=== PATIENT | female | born 1985 | race Caucasian/White ===

== ENCOUNTER 2018-11-10 17:01 | Observation (INO) ==
[2018-11-10] MEDS ORDERED: HYDROmorphone INJ 0.5 MG/0.5 ML SYR IV STA ×2 (17:23→18:53)
[2018-11-10] MEDS ORDERED: SODIUM CHLORIDE 0.9% 1000ML 1,000 ML IV ONE ×2 (17:23→19:14)
[2018-11-10] MEDS ORDERED: ONDANSETRON INJ 2 MG/ML 2 ML VIAL IV STA ×2 (17:23→23:00)
[2018-11-10 17:29] LABS: Appearance Urine Clear (Clear); Bilirubin Urine Negative (Negative); Blood Urine Negative (Negative); Color Urine Yellow; Glucose Urine UA Negative (Negative); Ketones Urine Negative (Negative); Leukocyte Esterase Urine Negative (Negative); Nitrite Urine Negative (Negative); Protein Urine Negative (Negative); Urobilinogen Urine Negative (Negative); pH Urine 5.5 (4.5-7.5)
[2018-11-10 17:54] LABS: Basophils # (auto) 0.03 K/uL (0-0.2); Basophils % (auto) 0.4 %; Eosinophils # (auto) 0.19 K/uL (0-0.5); Eosinophils % (auto) 2.4 %; Hematocrit (blood only) 36.3 % (37-47); Hemoglobin 12.1 g/dL (12.0-16.0); Immature Granulocytes # (auto) 0.01 K/uL (0.00-0.02); Immature Granulocytes % (auto) 0.1 %; Lymphocytes # (auto) 1.69 K/uL (1.2-3.4); Lymphocytes % (auto) 21.6 %; Mean Corpuscular Hgb Conc 33.3 g/dL (32-36); Mean Corpuscular Volume 88.3 fL (80-100); Mean Platelet Volume 9.4 fL (7.4-10.4); Monocytes # (auto) 0.49 K/uL (0.11-0.59); Monocytes % (auto) 6.3 %; Neutrophils # (auto) 5.42 K/uL (1.4-6.5); Neutrophils % (auto) 69.2 %; Platelet Count 239 K/uL (130-400); RDW Coefficient of Variation 12.6 % (11.5-14.5); RDW Standard Deviation 40.5 fL (36.4-46.3); Red Blood Count 4.11 M/uL (4.2-5.4); White Blood Count 7.83 K/uL (4.8-10.8)
--- NOTE | 2018-11-10 18:07 | Emergency Department Note ---
History of Present Illness General Chief complaint: Kidney Stone Stated complaint: KIDNEY STONE Time Seen by Provider: 11/10/18 17:43 History of Present Illness Maximum Pain Intensity: 9 This patient is a 33-year-old female who presents to the emergency department with complaints of severe right flank pain that has been ongoing for the last 2 weeks. She has a history of ureteral stones. She is currently following with [facility] urology. She was supposed to undergo testing this morning with [facility] urology, but was unable to go due to pain. She also reports intermittent fevers as high as 102 F over the last several days. She has been taking oxycodone with no relief. She does report hematuria and nausea. The history is somewhat limited secondary to the patient's pain level Home Medications Home Medications Medication Instructions Recorded Confirmed Type infliximab [Remicade] 100 mg IV Q8WK 11/10/18 11/10/18 History ondansetron 8 mg PO TID PRN 11/10/18 11/10/18 History oxycodone 5 mg PO Q4H PRN 11/10/18 11/10/18 History Allergies Allergy/AdvReac Type Severity Reaction Status Date / Time amoxicillin Allergy Intermediate RASH Verified 02/14/18 18:52 dicyclomine Allergy Intermediate RASH Verified 02/14/18 18:52 diphenhydramine Allergy Intermediate IV-RASH, Verified 02/14/18 18:52 ORAL "OK" metoclopramide Allergy Intermediate "JUMPED Verified 02/14/18 18:52 OFF THE BED"-TOLD NOT TO TAKE AGAIN morphine Allergy Intermediate RASH Verified 02/14/18 18:52 CHLORHEXADINE Allergy Severe "CAN'T USE Uncoded 02/14/18 18:52 ARM IF USED TO CLEAN PRIOR TO IV". Past Med/Surg History Medical History Crohn's disease Kidney stone Social History Preferred Language: Malay Feels Safe at Home: Yes Smoking Status: Never smoker Review of Systems A total of 10 systems reviewed and were otherwise negative Physical Exam Vital Signs Vital Signs - 24 hr 11/10/18 17:12 11/10/18 19:04 11/10/18 20:44 Temperature 37.0 C Temperature Source Oral Sepsis Recent Fever Within 48 Hours No Sepsis Action Taken by Nursing No Action Required Pulse Rate 94 H Pulse Rate [Apical] 100 H 80 Respiratory Rate 18 18 13 Respiratory Effort / Characteristics Non-Labored Spontaneous Respiratory Depth Normal Normal Respiratory Pattern Regular Blood Pressure 122/80 Blood Pressure [Right Arm] 121/76 107/79 Blood Pressure Mean 94 Blood Pressure Mean [Right Arm] 91 88 Blood Pressure Position Sitting Pulse Oximetry 100 98 95 Oxygen Delivery Method Room Air Room Air Room Air Constitutional WD/WN, vitals as above Eyes EOM intact bilaterally ENMT external ear and nose normal, oropharynx normal Neck trachea midline Respiratory normal respiratory effort, lungs clear to auscultation Cardiovascular RRR, no murmur, no edema Gastrointestinal (Abdomen) Diffuse tenderness palpation over the abdomen without any guarding or rebound tenderness. Right-sided CVA tenderness noted. Musculoskeletal no cyanosis or clubbing, extremities motor strength 5/5 Skin no rashes, warm and dry Neurologic Alert and oriented x3. No focal motor deficits. Psychiatric Acting appropriately Course Patient was seen and examined Vital signs including blood pressure were reviewed medications list was verified with patient Labs were obtained, and a saline lock was established The patient was ordered Dilaudid 0.5 mg IV and Zofran 4 mg IV. She was hydrated with 1 L of normal saline. Urology was consulted An ultrasound was performed Upon reevaluation, the patient was still complaining of pain. She was ordered Flomax 4 mg p.o. and Dilaudid 0.5 mg IV. We discussed her workup. She voiced understanding. Upon reevaluation, the patient was still complaining of pain. She was ordered Dilaudid 1mg At this point, we discussed her results. She voiced understanding. She was in agreement with the plan. The case was discussed with case management and subsequently the hospitalist service. They kindly agreed to evaluate the patient for possible inpatient management. Consultations Consultation #1: Dr. Tate-urology Consultation #2: Hospitalist service Administered Medications Discontinued Medications Hydromorphone HCl (Dilaudid) 0.5 mg IV NOW STA Stop: 11/10/18 17:24 Last Admin: 11/10/18 17:49 Dose: 0.5 mg Documented by: [id number] Hydromorphone HCl (Dilaudid) 0.5 mg IV NOW STA Stop: 11/10/18 18:54 Last Admin: 11/10/18 18:57 Dose: 0.5 mg Documented by: [id number] Hydromorphone HCl (Dilaudid) 1 mg IV NOW STA Stop: 11/10/18 20:36 Last Admin: 11/10/18 20:42 Dose: 1 mg Documented by: [id number] Sodium Chloride (Nss 1000ml) 1,000 mls @ 999 mls/hr IV .Q1H1M ONE Stop: 11/10/18 18:23 Last Infusion: 11/10/18 20:22 Dose: 0 mls/hr Documented by: [id number] Admin: 11/10/18 17:49 Dose: 999 mls/hr Documented by: [id number] Sodium Chloride (Nss 1000ml) 1,000 mls @ 999 mls/hr IV .Q1H1M ONE Stop: 11/10/18 20:14 Last Infusion: 11/10/18 21:23 Dose: 0 mls/hr Documented by: [id number] Admin: 11/10/18 20:22 Dose: 999 mls/hr Documented by: [id number] Ondansetron HCl (Zofran) 4 mg IV NOW STA Stop: 11/10/18 17:24 Last Admin: 11/10/18 17:49 Dose: 4 mg Documented by: [id number] Tamsulosin HCl (Flomax) 0.4 mg PO NOW ONE Stop: 11/10/18 19:15 Last Admin: 11/10/18 19:30 Dose: 0.4 mg Documented by: [id number] Medical Decision Making Medical Records Attestation: I reviewed the patient's medical records. Home Medications Current Medication List: was personally reviewed by ga Laboratory Data Attestation: I reviewed the patient's lab results. Result diagrams: 11/10/18 17:47 11/10/18 17:47 Lab Results 11/10/18 11/10/18 11/10/18 Range/Units 17:19 17:47 17:47 WBC 7.83 (4.8-10.8) K/uL RBC 4.11 L (4.2-5.4) M/uL Hgb 12.1 (12.0-16.0) g/dL Hct 36.3 L (37-47) % MCV 88.3 (80-100) fL MCH 29.4 (25-34) pg MCHC 33.3 (32-36) g/dL RDW Std Deviation 40.5 (36.4-46.3) fL RDW Coeff of Sp 12.6 (11.5-14.5) % Plt Count 239 (130-400) K/uL MPV 9.4 (7.4-10.4) fL Immature Gran % (Auto) 0.1 % Neut % (Auto) 69.2 % Lymph % (Auto) 21.6 % Jackson % (Auto) 6.3 % Eos % (Auto) 2.4 % Baso % (Auto) 0.4 % Immature Gran # (Auto) 0.01 (0.00-0.02) K/uL Neut # (Auto) 5.42 (1.4-6.5) K/uL Lymph # (Auto) 1.69 (1.2-3.4) K/uL Jackson # (Auto) 0.49 (0.11-0.59) K/uL Eos # (Auto) 0.19 (0-0.5) K/uL Baso # (Auto) 0.03 (0-0.2) K/uL Sodium 143 (136-145) mmol/L Potassium 3.9 (3.5-5.1) mmol/L Chloride 110 H (98-107) mmol/L Carbon Dioxide 28 (21-32) mmol/L Anion Gap 5.0 (3-11) BUN 4 L (7-18) mg/dl Creatinine 0.62 (0.6-1.2) mg/dl Est Cr Clr Drug Dosing 108.8 ml/min Est GFR ( Amer) 139.3 Est GFR (Non-Af Amer) 120.2 BUN/Creatinine Ratio 6.3 L (10-20) Glucose 63 L (70-99) mg/dl Calcium 9.5 (8.5-10.1) mg/dl Urine Color Yellow Urine Appearance Clear (Clear) Urine pH 5.5 (4.5-7.5) Ur Specific [place] 1.010 (1.000-1.030) Urine Protein Negative (Negative) Urine Glucose (UA) Negative (Negative) Urine Ketones Negative (Negative) Urine Blood Negative (Negative) Urine Nitrite Negative (Negative) Urine Bilirubin Negative (Negative) Urine Urobilinogen Negative (Negative) Ur Leukocyte Esterase Negative (Negative) Imaging Data Attestation: I personally reviewed and interpreted this imaging study as follows: Radiologist's Impression: Retroperitoneal ultrasound FINDINGS: The right kidney measures 8.6 x 3.9 x 6 cm and left kidney measures 10.2 x 6 x 5.7 cm. There is no left hydronephrosis. There is minimal right collecting system dilatation. Suspected bilateral renal calculi are noted. These measure up to 5 mm. Both ureteral jets were identified. IMPRESSION: 1. Mild right collecting system dilatation. 2. Bilateral nephrolithiasis. Electronically signed by: Gigi Walters M.D. 11/10/2018 6:49 PM Dictated: 11/10/181846 Transcribed: 11/10/181846 [facility] Narrative Differential diagnosis: Ureteral stone, pyelonephritis, sepsis, musculoskeletal pain, drug-seeking behavior, colitis flare, other infectious etiology, among others This patient is a 33-year-old female who presents to the emergency department with ongoing flank pain as noted above. On exam, she did appear comfortable. She was however afebrile. She did not have any focal tenderness in her abdomen. Her labs reveal no leukocytosis. Renal function is intact. Urinalysis did not appear infected. There was no blood. The case was discussed with urology. They recommended an ultrasound. This was performed. Mild fullness was noted of the right sided collecting duct. Unfortunately, I was unable to control the patient's pain. For this reason, hospitalist consultation was felt to be appropriate. They will evaluate the patient for further treatment. Impression & Plan Flank pain Discharge Plan Visit Data Chief Complaint: Kidney Stone Stated Complaint: KIDNEY STONE ED Provider: Nigel Kirkpatrick ED Midlevel Provider: Nikole Gregory Discharge Problem: Flank pain Patient Disposition: Admitted As Inpatient Condition: Fair Forms Stand Alone Forms: [facility] Prescriptions Prescriptions: No Action ondansetron 8 mg tablet,disintegrating 8 mg PO TID PRN (Reason: Nausea And Vomiting) RF: 0 Remicade 100 mg Recon Soln 100 mg IV Q8WK RF: 0 oxycodone 5 mg tablet 5 mg PO Q4H PRN (Reason: Pain) RF: 0 Referrals Referrals: Tesfaye Hameed DO [Primary Care Provider] -
[2018-11-10 18:12] LABS: BUN Creatinine Ratio 6.3 (10-20); Calcium 9.5 mg/dl (8.5-10.1); Creatinine Clr Calc Pharmacy 108.8 ml/min; Est GFR (African American) 139.3; Est GFR (Non-African American) 120.2; Potassium 3.9 mmol/L (3.5-5.1)
--- NOTE | 2018-11-10 18:50 | Ultrasound Report ---
US retro bladder ltd CLINICAL HISTORY: R flank pain hx stones COMPARISON STUDY: KUB February 14, 2018. CT of the abdomen and pelvis September 22, 2018. FINDINGS: The right kidney measures 8.6 x 3.9 x 6 cm and left kidney measures 10.2 x 6 x 5.7 cm. Ther e is no left hydronephrosis. There is minimal right collecting system dilatation. Suspected bilateral renal calculi are noted. These measure up to 5 mm. Both ureteral jets were identified. IMPRESSION: 1. Mild right collecting system dilatation. 2. Bilateral nephrolithiasis. Electronically signed by: Gigi Walters M.D. 11/10/2018 6:49 PM
[2018-11-10] MEDS ORDERED: TAMSULOSIN HCL 0.4 MG CAP PO ONE (19:14)
[2018-11-10] MEDS ORDERED: HYDROmorphone INJ 1 MG/ML SYRINGE IV STA (20:35)
--- NOTE | 2018-11-10 22:51 | CT Scan Report ---
CT OF THE ABDOMEN AND PELVIS WITHOUT CONTRAST CLINICAL HISTORY: Right flank pain. Fever. COMPARISON STUDY: CT of the abdomen and pelvis September 22, 2018. Renal ultrasound performed earlier today. TECHNIQUE: Axial images of the abdomen and pelvis were obtained without IV contrast. Images were revi ewed in the axial, sagittal, and coronal planes. Automated exposure control was utilized for the vicenta dy. A dose lowering technique was utilized adhering to the principles of ALARA. FINDINGS: Note is made of a 4 mm left renal calculus. Several right renal calculi measure up to 5 mm. There is no hydronephrosis or hydroureter. There is no perinephric infiltration. No ureteral calculi are present. Evaluation of the remainder of the abdomen and pelvis is suboptimal on this unenhanced exam. There is no biliary ductal dilatation status post cholecystectomy. Unenhanced images of the spl een, adrenal glands and pancreas are normal. There is no pancreatic ductal dilatation. There is no pe ripancreatic infiltration. There are postoperative findings consistent with a right hemicolectomy. Th ere is no evidence for a bowel obstruction. There is no lymphadenopathy or ascites. Laxity of the ant erior abdominal wall with suspected hernias are noted. This contains bowel loops without bowel obstru ction. This is unchanged. There is no ascites. No suspicious osseous lesions are noted. IMPRESSION: 1. Bilateral nephrolithiasis. No ureteral calculi or hydronephrosis. 2. Status post right hemicolectomy. No bowel obstruction. 3. Several bowel containing and fat-containing ventral hernias. Electronically signed by: Gigi Walters M.D. 11/10/2018 10:48 PM
[2018-11-11] MEDS ORDERED: HYDROmorphone INJ 0.5 MG/0.5 ML SYR IV STA (00:13)
[2018-11-11] MEDS ORDERED: MAGNESIUM HYDROXIDE SUSP 30 ML UDC PO PRN (01:19)
[2018-11-11] MEDS ORDERED: POLYETHYLENE (MIRALAX) 17 GM PACK PO PRN (01:19)
[2018-11-11] MEDS ORDERED: ALUMINUM/MAGNESIUM SUSP 30 ML UDC PO PRN (01:19)
[2018-11-11] MEDS ORDERED: ACETAMINOPHEN 325 MG TAB PO PRN (01:19)
--- NOTE | 2018-11-11 01:25 | History & Physical Report ---
Date of Service November 11, 2018 Assessment & Plan (1) Flank pain: 33-year-old female with history of Crohn's disease and kidney stones presents with right-sided flank pain. Workup in the ED was negative for a white count, UA was negative for infection, there was no signs of ureteral stones or pyelonephritis. The patient has been afebrile for us. Nonetheless, the patient was admitted secondary to intractable pain. There appears to be some right-sided dilation and bilateral nephrolithi asis. Considering the pain the patient was having and the image findings, the patient was decidedly admitted for pain control and further urologic workup. Right flank pain, renal colic Ultrasound shows right-sided dilation, bilateral nephrolithiasis CT did not show any renal colic in the ureters, but it did show some in the kidney, no signs of bowel obstruction Admitting the patient for intractable pain, further evaluation from urology Patient was treated in the ED with dosing of Dilaudid, will de-escalate to IV Tylenol, every 4 hour oxycodone Urology consult, keep the patient n.p.o., continue IV fluids Crohn's disease, history of small bowel resection CT was not significant for inflammatory lesions Patient receives Remicade DVT prophylaxis SCDs, ambulate CODE STATUS Full code FEN N.p.o. (2) Renal colic: (3) Crohn disease: (4) Psoriasis: (5) History of cholecystectomy: (6) History of resection of small bowel: History of Present Illness Primary Care Provider: Tesfaye Hameed DO 33-year-old female with history of Crohn's disease and kidney stones presents with right-sided flank pain. The pain is been present for the past 2 weeks. She states that she has been seen by [facility] in the urology and was supposed to undergo testing today, but the patient was unable to make her appointment due to excruciating pain. She also states that she has had urinary symptoms during this period of time including hematuria. She also states that she has had periodic fevers. She states that today she is been nauseous and that she has vomited on 2 occasions. She denies diarrhea. Allergies Allergy/AdvReac Type Severity Reaction Status Date / Time amoxicillin Allergy Intermediate RASH Verified 02/14/18 18:52 dicyclomine Allergy Intermediate RASH Verified 02/14/18 18:52 diphenhydramine Allergy Intermediate IV-RASH, Verified 02/14/18 18:52 ORAL "OK" ketorolac [From Toradol] Allergy Intermediate Rash Verified 11/11/18 22:32 metoclopramide Allergy Intermediate "JUMPED Verified 02/14/18 18:52 OFF THE BED"-TOLD NOT TO TAKE AGAIN morphine Allergy Intermediate RASH Verified 02/14/18 18:52 sulfamethoxazole Allergy Intermediate Rash Verified 11/11/18 22:32 [From Bactrim] trimethoprim [From Bactrim] Allergy Intermediate Rash Verified 11/11/18 22:32 CHLORHEXADINE Allergy Severe "CAN'T USE Uncoded 02/14/18 18:52 ARM IF USED TO CLEAN PRIOR TO IV". Home Medications Home Medications Medication Instructions Recorded Confirmed Type Remicade 100 mg IV Q8WK 11/10/18 11/10/18 History ondansetron 8 mg PO TID PRN 11/10/18 11/10/18 History acetaminophen [Mapap 650 mg PO Q4H PRN #30 tab 11/12/18 Rx (acetaminophen)] Past Med/Surg History Medical History Crohn's disease Kidney stone Social History Preferred Language: Albanian Communication Ability: Effective Beliefs That Will Affect Care: None Current Living Situation: Spouse and Family Other Information That Helps Us Care for You: No Feels Safe at Home: Yes Safety Concerns: Feels Safe At This Time Smoking Status: Never smoker Hx Alcohol Use: No Hx Substance Use: No Review of Systems Review of Systems: All systems reviewed & are unremarkable except as noted in HPI & below Physical Exam Vital Signs (Past 24 Hours): Last Vital Signs Temp 37.0 C 11/10/18 17:12 Pulse 81 11/11/18 00:52 Resp 18 11/11/18 00:52 BP 124/80 11/11/18 00:52 Pulse Ox 99 11/11/18 00:52 Constitutional: WD/WN, vitals as above Eyes: PERRL, conjunctivae normal, anicteric sclerae ENMT: external ear and nose normal, oropharynx normal Neck: trachea midline, no thyromegaly Respiratory: normal respiratory effort, lungs clear to auscultation Cardiovascular: RRR, no murmur, no edema Gastrointestinal (Abdomen): Inspection/Auscultation: normal bowel sounds, + visible herniation and + abdominal surgical scar; abdomen not distended Percussion/Palpation: + abdomen tender (epigastric, LLQ) and abdomen soft; no guarding and abdomen not rigid Musculoskeletal: no cyanosis or clubbing, extremities motor strength 5/5 right-sided CVA tenderness Psychiatric: A+Ox3, euthymic affect Results & Data Laboratory Results Laboratory Last Values WBC 7.83 K/uL (4.8-10.8) 11/10/18 17:47 RBC 4.11 M/uL (4.2-5.4) L 11/10/18 17:47 Hgb 12.1 g/dL (12.0-16.0) 11/10/18 17:47 Hct 36.3 % (37-47) L 11/10/18 17:47 MCV 88.3 fL (80-100) 11/10/18 17:47 MCH 29.4 pg (25-34) 11/10/18 17:47 MCHC 33.3 g/dL (32-36) 11/10/18 17:47 RDW Std Deviation 40.5 fL (36.4-46.3) 11/10/18 17:47 RDW Coeff of Sp 12.6 % (11.5-14.5) 11/10/18 17:47 Plt Count 239 K/uL (130-400) 11/10/18 17:47 MPV 9.4 fL (7.4-10.4) 11/10/18 17:47 Immature Gran % (Auto) 0.1 % 11/10/18 17:47 Neut % (Auto) 69.2 % 11/10/18 17:47 Lymph % (Auto) 21.6 % 11/10/18 17:47 Iron % (Auto) 6.3 % 11/10/18 17:47 Eos % (Auto) 2.4 % 11/10/18 17:47 Baso % (Auto) 0.4 % 11/10/18 17:47 Immature Gran # (Auto) 0.01 K/uL (0.00-0.02) 11/10/18 17:47 Neut # (Auto) 5.42 K/uL (1.4-6.5) 11/10/18 17:47 Lymph # (Auto) 1.69 K/uL (1.2-3.4) 11/10/18 17:47 Iron # (Auto) 0.49 K/uL (0.11-0.59) 11/10/18 17:47 Eos # (Auto) 0.19 K/uL (0-0.5) 11/10/18 17:47 Baso # (Auto) 0.03 K/uL (0-0.2) 11/10/18 17:47 Sodium 143 mmol/L (136-145) 11/10/18 17:47 Potassium 3.9 mmol/L (3.5-5.1) 11/10/18 17:47 Chloride 110 mmol/L (98-107) H 11/10/18 17:47 Carbon Dioxide 28 mmol/L (21-32) 11/10/18 17:47 Anion Gap 5.0 (3-11) 11/10/18 17:47 BUN 4 mg/dl (7-18) L 11/10/18 17:47 Creatinine 0.62 mg/dl (0.6-1.2) 11/10/18 17:47 Est Cr Clr Drug Dosing 108.8 ml/min 11/10/18 17:47 Est GFR ( Amer) 139.3 11/10/18 17:47 Est GFR (Non-Af Amer) 120.2 11/10/18 17:47 BUN/Creatinine Ratio 6.3 (10-20) L 11/10/18 17:47 Glucose 63 mg/dl (70-99) L 11/10/18 17:47 Calcium 9.5 mg/dl (8.5-10.1) 11/10/18 17:47 Urine Color Yellow 11/10/18 17:19 Urine Appearance Clear (Clear) 11/10/18 17:19 Urine pH 5.5 (4.5-7.5) 11/10/18 17:19 Ur Specific [place] 1.010 (1.000-1.030) 11/10/18 17:19 Urine Protein Negative (Negative) 11/10/18 17:19 Urine Glucose (UA) Negative (Negative) 11/10/18 17:19 Urine Ketones Negative (Negative) 11/10/18 17:19 Urine Blood Negative (Negative) 11/10/18 17:19 Urine Nitrite Negative (Negative) 11/10/18 17:19 Urine Bilirubin Negative (Negative) 11/10/18 17:19 Urine Urobilinogen Negative (Negative) 11/10/18 17:19 Ur Leukocyte Esterase Negative (Negative) 11/10/18 17:19 Code Status & VTE Plan Code Status Full code VTE Prophylaxis Plan VTE Prophylaxis will be ordered: Yes Supervising Physician Co-Signing Physician Notes Attending addendum: I have physically seen this patient, have supervised the medical residents activities, and agree with the H&P unless as otherwise noted. Assessment and Plan: Right-sided flank pain/right ureteral dilatation/bilateral nephrolithiasis-- Scheduled for procedure in the a.m. with urology. Acetaminophen 1 g IV every 8 hours as needed mild pain or temperature. Oxycodone 5 mg p.o. every 4 hours as needed moderate pain. Dilaudid 0.2 mg IV every 3 hours as needed severe pain. NSS + KCl 20 mEq at 100 mils per hour. Zofran 4 mg IV every 6 hours as needed. Crohn's disease/history of small bowel resection- Immunocompromised on Remicade. Has not had a colonoscopy in a few years. If symptoms are persistent and urologic workup is negative, will need to be referred back to her medical scientific liaison for possible colonoscopy. Remainder of orders and notations as noted. Resident Activity Tracking Resident Involvement: Resident Care Provided Care Provided: Adult [facility]
[2018-11-11] MEDS: SODIUM CHLORIDE 0.9% 1000ML 1,000 ML IV SCH ×3 (01:46→17:34)
[2018-11-11] MEDS: OXYCODONE HCL IR 5 MG TAB (IMMEDIATE RELEASE) PO PRN ×3 (04:25→14:12)
[2018-11-11] MEDS: ACETAMINOPHEN 1,000 MG/100 ML VIAL IV PRN ×2 (07:51→15:28)
[2018-11-11 08:16] LABS: Basophils # (auto) 0.01 K/uL (0-0.2); Basophils % (auto) 0.2 %; Eosinophils # (auto) 0.25 K/uL (0-0.5); Eosinophils % (auto) 5.1 %; Hematocrit (blood only) 30.8 % (37-47); Hemoglobin 10.3 g/dL (12.0-16.0); Immature Granulocytes # (auto) 0.01 K/uL (0.00-0.02); Immature Granulocytes % (auto) 0.2 %; Lymphocytes # (auto) 1.45 K/uL (1.2-3.4); Lymphocytes % (auto) 29.7 %; Mean Corpuscular Hgb Conc 33.4 g/dL (32-36); Mean Corpuscular Volume 87.5 fL (80-100); Mean Platelet Volume 9.4 fL (7.4-10.4); Monocytes # (auto) 0.39 K/uL (0.11-0.59); Neutrophils # (auto) 2.77 K/uL (1.4-6.5); Neutrophils % (auto) 56.8 %; Platelet Count 191 K/uL (130-400); RDW Coefficient of Variation 12.8 % (11.5-14.5); RDW Standard Deviation 40.9 fL (36.4-46.3); Red Blood Count 3.52 M/uL (4.2-5.4); White Blood Count 4.88 K/uL (4.8-10.8)
[2018-11-11 09:14] LABS: BUN Creatinine Ratio 6.5 (10-20); Creatinine Clr Calc Pharmacy 129.7 ml/min; Est GFR (African American) 147.6; Est GFR (Non-African American) 127.3; Potassium 3.5 mmol/L (3.5-5.1)
[2018-11-11 10:53] LABS: Pregnancy Test, Urine Negative (Negative)
--- NOTE | 2018-11-11 11:06 | Urology Consultation ---
Date of Consultation November 11, 2018 Assessment & Plan (1) Renal colic: (2) Flank pain: 33yo F with R mid abdominal/flank pain, fevers and intermittent hematuria. VS stable, afebrile. Labs and CT imaging reviewed with Dr Albright. UA negative. Will obtain UC&S for completeness. May benefit from NSAIDs - voltaren gel vs toradol. Will allow hospital team to decide. No clear sign of obstruction or infection that would explain her acute R abdominal/flank pain. Possibly could have recently passed small stone. Could have musculoskeletal vs GI component- very tender/guarding upon palpation of R middle abdomen and flank. Describes as sharp, inconsistent with typical renal colic. ?Crohn's flare. Diarrhea and nausea yesterday - felt to be from ciprofloxacin however could be multifactorial. We do not feel surgical intervention will improve her pain at this time - okay to provide diet from our perspective. Recommend pain control and possible GI consult. Will continue to monitor with primary team. History of Present Illness Reason for Consultation: Right flank pain, hx stones Requesting Physician: Dr Spivey Attending Physician: Arlin Spivey MD History of Present Illness 33yo F with hx of Crohn's Disease and nephrolithiasis presents to [facility] ED by our recommendation for further evaluation of ongoing R flank pain x2 weeks, fevers, gross hematuria intermittently. She is new to our practice end of August, currently undergoing outpt evalua tion for this complaint. Planned for IVP today, however she called our practice with intractable pain, therefore we recommended ED evaluation. Recent UC&S negative, treated with 5d ciprofloxacin for suspected pyelo. Pt finished yesterday, states "it tore my stomach up" - diarrhea, nausea/emesis per patient. Currently in remission from Crohn's per patient. CT imaging reveals stable renal stones, nonobstructing. No ureteral stones, no hydro. No CT evidence of abscess or pyelonephritis. Appears very uncomfortable on exam today. Unable to open her eyes, moaning at times. Lying in bed with lights off and curtain down. Reports still feeling nausea- no emesis. Denies dysuria, urgency/frequency. ROS somewhat limited due to pain and not being very forthcoming with information. Allergies Allergy/AdvReac Type Severity Reaction Status Date / Time amoxicillin Allergy Intermediate RASH Verified 02/14/18 18:52 dicyclomine Allergy Intermediate RASH Verified 02/14/18 18:52 diphenhydramine Allergy Intermediate IV-RASH, Verified 02/14/18 18:52 ORAL "OK" metoclopramide Allergy Intermediate "JUMPED Verified 02/14/18 18:52 OFF THE BED"-TOLD NOT TO TAKE AGAIN morphine Allergy Intermediate RASH Verified 02/14/18 18:52 CHLORHEXADINE Allergy Severe "CAN'T USE Uncoded 02/14/18 18:52 ARM IF USED TO CLEAN PRIOR TO IV". Home Medications Home Medications Medication Instructions Recorded Confirmed Type infliximab [Remicade] 100 mg IV Q8WK 11/10/18 11/10/18 History ondansetron 8 mg PO TID PRN 11/10/18 11/10/18 History oxycodone 5 mg PO Q4H PRN 11/10/18 11/10/18 History Patient History Medical History Crohn's disease Kidney stone Social History Communication Ability: Effective Beliefs That Will Affect Care: None Current Living Situation: Spouse and Family Other Information That Helps Us Care for You: No Feels Safe at Home: Yes Safety Concerns: Feels Safe At This Time Smoking Status: Never smoker Hx Alcohol Use: No Hx Substance Use: No Review of Systems Constitutional: no fever and no chills Eyes: no problem reported Ear, Nose, Mouth, Throat: no ear pain and no tinnitus Respiratory: no cough and no dyspnea Cardiovascular: no chest pain Gastrointestinal: no abdominal pain and no belching Genitourinary (Female): no dysuria, no urinary frequency and no pelvic pain Musculoskeletal: no back pain Integumentary: no acne Neurologic: no falls, no paralysis, no numbness and no paresthesia Psychiatric: no hopelessness Endocrine: + fatigue; no polydipsia Hematologic / Lymphatic: no easy bleeding Allergy / Immunological: no cough Physical Exam Vital Signs (Past 24 Hours): Last Vital Signs Temp 36.6 C 11/11/18 07:42 Pulse 77 11/11/18 07:42 Resp 16 11/11/18 07:42 BP 102/68 11/11/18 07:42 Pulse Ox 96 11/11/18 07:42 Constitutional: no acute distress Eyes: no nystagmus ENMT: Ears: no hearing impairment Neck: trachea midline Respiratory: no respiratory distress and does not use accessory muscles Cardiovascular: Vessels: no JVD Gastrointestinal (Abdomen): Inspection/Auscultation: abdomen not distended and no abdominal edema Percussion/Palpation: + abdomen tender (Right middle quadrant with palpation), + guarding (Right middle quadrant and flank upon palpation) and abdomen soft Musculoskeletal: Head/Neck/Chest: normocephalic and head atraumatic Skin: no rashes, warm and dry Neurologic: awake; not confused and not obtunded Psychiatric: Orientation: alert and oriented x 3 Genitourinary: no CVA tenderness (no classic R CVA pain) Results & Data Laboratory Results Laboratory Results - last 48 hr 11/10/18 11/10/18 11/10/18 17:19 17:47 17:47 WBC 7.83 RBC 4.11 L Hgb 12.1 Hct 36.3 L MCV 88.3 MCH 29.4 MCHC 33.3 RDW Std Deviation 40.5 RDW Coeff of Sp 12.6 Plt Count 239 MPV 9.4 Immature Gran % (Auto) 0.1 Neut % (Auto) 69.2 Lymph % (Auto) 21.6 [place] % (Auto) 6.3 Eos % (Auto) 2.4 Baso % (Auto) 0.4 Immature Gran # (Auto) 0.01 Neut # (Auto) 5.42 Lymph # (Auto) 1.69 [place] # (Auto) 0.49 Eos # (Auto) 0.19 Baso # (Auto) 0.03 Sodium 143 Potassium 3.9 Chloride 110 H Carbon Dioxide 28 Anion Gap 5.0 BUN 4 L Creatinine 0.62 Est Cr Clr Drug Dosing 108.8 Est GFR ( Amer) 139.3 Est GFR (Non-Af Amer) 120.2 BUN/Creatinine Ratio 6.3 L Glucose 63 L Calcium 9.5 Urine Color Yellow Urine Appearance Clear Urine pH 5.5 Ur Specific [place] 1.010 Urine Protein Negative Urine Glucose (UA) Negative Urine Ketones Negative Urine Blood Negative Urine Nitrite Negative Urine Bilirubin Negative Urine Urobilinogen Negative Ur Leukocyte Esterase Negative Urine Test 11/11/18 11/11/18 11/11/18 07:59 07:59 10:31 WBC 4.88 RBC 3.52 L Hgb 10.3 L Hct 30.8 L MCV 87.5 MCH 29.3 MCHC 33.4 RDW Std Deviation 40.9 RDW Coeff of Sp 12.8 Plt Count 191 MPV 9.4 Immature Gran % (Auto) 0.2 Neut % (Auto) 56.8 Lymph % (Auto) 29.7 [place] % (Auto) 8.0 Eos % (Auto) 5.1 Baso % (Auto) 0.2 Immature Gran # (Auto) 0.01 Neut # (Auto) 2.77 Lymph # (Auto) 1.45 [place] # (Auto) 0.39 Eos # (Auto) 0.25 Baso # (Auto) 0.01 Sodium 143 Potassium 3.5 Chloride 113 H Carbon Dioxide 26 Anion Gap 4.0 BUN 3 L Creatinine 0.52 L Est Cr Clr Drug Dosing 129.7 Est GFR ( Amer) 147.6 Est GFR (Non-Af Amer) 127.3 BUN/Creatinine Ratio 6.5 L Glucose 89 Calcium 8.0 L D Urine Color Urine Appearance Urine pH Ur Specific [place] Urine Protein Urine Glucose (UA) Urine Ketones Urine Blood Urine Nitrite Urine Bilirubin Urine Urobilinogen Ur Leukocyte Esterase Urine Test Negative
[2018-11-11] MEDS: HYDROmorphone INJ 0.5 MG/0.5 ML SYR IV PRN ×2 (11:46→17:27)
[2018-11-11] MEDS: ONDANSETRON INJ 2 MG/ML 2 ML VIAL IV PRN (14:14)
--- NOTE | 2018-11-11 15:28 | Hospitalist Progress Note ---
Date of Service November 11, 2018 Assessment & Plan (1) Flank pain: This patient is a 33yo female with a history of Crohn's disease status post small bowel resection, nephrolithiasis, who presents with R mid abdominal/flank pain, fevers and intermittent hematuria. CT scan without evidence of ureterolithiasis but does have bilateral nephrolithiasis Renal ultrasound read as mild fullness of the collecting system of the right kidney but no hydronephrosis Question if she has a non-radiopaque stone that is small? I do not suspect she is having any issues with her Crohn's disease as her hernias are reducible and she has no bowel abnormalities on CT scan. Her UA here is normal but she also just finished a course of Cipro as an outpatient. She was having fevers at home previously. Could this be residual pyelonephritis? -Discussed with urology-plan for IVP in the morning -Continue pain control with IV Dilaudid as needed -Continue antiemetics with Zofran and add Phenergan as needed -Continue IV fluids -Not currently on antibiotics (2) Renal colic: As above (3) History of resection of small bowel: Secondary to Crohn's disease (4) Crohn disease: Now in remission, remains on Remicade DVT prophylaxis-ambulation, SCDs Disposition-remain admitted to the hospital Subjective Pt still having severe pain in the right flank which radiates around to the right side of the abdomen. She is requiring IV Dilaudid. She reports she is allergic to Toradol which was added to her allergy list here. She is still having intermittent nausea and vomiting. Reports intermittent hematuria over the last 2 weeks. She had a fever at home last week as well as 3 weeks ago. I discussed case with urology nurse practitioner who plans on doing IVP tomorrow Review of Systems All systems reviewed & are unremarkable except as noted in HPI & below (Denies chest pain or shortness of breath, no other symptoms. No hematochezia or diarrhea or constipation) Physical Exam Vital Signs (Past 24 Hours): Last Vital Signs Temp 36.8 C 11/11/18 15:02 Pulse 77 11/11/18 15:02 Resp 20 11/11/18 15:02 BP 110/76 11/11/18 15:02 Pulse Ox 96 11/11/18 15:02 Constitutional: WD/WN, vitals as above Eyes: PERRL, conjunctivae normal, anicteric sclerae ENMT: external ear and nose normal, oropharynx normal Neck: trachea midline, no thyromegaly Respiratory: normal respiratory effort, lungs clear to auscultation Cardiovascular: RRR, no murmur, no edema Gastrointestinal (Abdomen): Inspection/Auscultation: normal bowel sounds; + abdomen abnormal to inspection (Large midline incisional scar) Percussion/Palpation: + abdomen tender (On the right side of abdomen with voluntary guarding, no rebound tenderness), abdomen soft and + hernia (Incisional hernia and umbilical hernia easily reducible) Positive right CVA tenderness Musculoskeletal: Extremities: extremities normal to inspection; no cyanosis and no clubbing Skin: no rashes, warm and dry Neurologic: moves all extremities and awake; no focal motor deficits Psychiatric: A+Ox3, euthymic affect Results & Data Laboratory Results 11/11/18 11/11/18 11/11/18 Range/Units 22:09 10:31 07:59 WBC (4.8-10.8) K/uL RBC (4.2-5.4) M/uL Hgb (12.0-16.0) g/dL Hct (37-47) % MCV (80-100) fL MCH (25-34) pg MCHC (32-36) g/dL RDW Std Deviation (36.4-46.3) fL RDW Coeff of Sp (11.5-14.5) % Plt Count (130-400) K/uL MPV (7.4-10.4) fL Immature Gran % (Auto) % Neut % (Auto) % Lymph % (Auto) % [place] % (Auto) % Eos % (Auto) % Baso % (Auto) % Immature Gran # (Auto) (0.00-0.02) K/uL Neut # (Auto) (1.4-6.5) K/uL Lymph # (Auto) (1.2-3.4) K/uL [place] # (Auto) (0.11-0.59) K/uL Eos # (Auto) (0-0.5) K/uL Baso # (Auto) (0-0.2) K/uL Sodium 143 (136-145) mmol/L Potassium 3.5 (3.5-5.1) mmol/L Chloride 113 H (98-107) mmol/L Carbon Dioxide 26 (21-32) mmol/L Anion Gap 4.0 (3-11) BUN 3 L (7-18) mg/dl Creatinine 0.52 L (0.6-1.2) mg/dl Est Cr Clr Drug Dosing 129.7 ml/min Est GFR ( Amer) 147.6 Est GFR (Non-Af Amer) 127.3 BUN/Creatinine Ratio 6.5 L (10-20) Glucose 89 (70-99) mg/dl Calcium 8.0 L D (8.5-10.1) mg/dl Urine Test Negative (Negative) POC Ur Test NEG (NEG) 11/11/18 Range/Units 07:59 WBC 4.88 (4.8-10.8) K/uL RBC 3.52 L (4.2-5.4) M/uL Hgb 10.3 L (12.0-16.0) g/dL Hct 30.8 L (37-47) % MCV 87.5 (80-100) fL MCH 29.3 (25-34) pg MCHC 33.4 (32-36) g/dL RDW Std Deviation 40.9 (36.4-46.3) fL RDW Coeff of Sp 12.8 (11.5-14.5) % Plt Count 191 (130-400) K/uL MPV 9.4 (7.4-10.4) fL Immature Gran % (Auto) 0.2 % Neut % (Auto) 56.8 % Lymph % (Auto) 29.7 % [place] % (Auto) 8.0 % Eos % (Auto) 5.1 % Baso % (Auto) 0.2 % Immature Gran # (Auto) 0.01 (0.00-0.02) K/uL Neut # (Auto) 2.77 (1.4-6.5) K/uL Lymph # (Auto) 1.45 (1.2-3.4) K/uL [place] # (Auto) 0.39 (0.11-0.59) K/uL Eos # (Auto) 0.25 (0-0.5) K/uL Baso # (Auto) 0.01 (0-0.2) K/uL Sodium (136-145) mmol/L Potassium (3.5-5.1) mmol/L Chloride (98-107) mmol/L Carbon Dioxide (21-32) mmol/L Anion Gap (3-11) BUN (7-18) mg/dl Creatinine (0.6-1.2) mg/dl Est Cr Clr Drug Dosing ml/min Est GFR ( Amer) Est GFR (Non-Af Amer) BUN/Creatinine Ratio (10-20) Glucose (70-99) mg/dl Calcium (8.5-10.1) mg/dl Urine Test (Negative) POC Ur Test (NEG)
[2018-11-11] MEDS ORDERED: KETOROLAC TROMETHAMINE 15 MG/ML VIAL IV PRN (18:59)
[2018-11-11] MEDS ORDERED: PROMETHAZINE HCL 12.5 MG in SODIUM CHLORIDE 0.9% 50 ML IV PRN (19:22)
[2018-11-11] MEDS: HYDROmorphone INJ 1 MG/ML SYRINGE IV PRN (19:36)
[2018-11-12] MEDS: OXYCODONE HCL IR 5 MG TAB (IMMEDIATE RELEASE) PO PRN ×3 (02:10→18:08)
[2018-11-12] MEDS: SODIUM CHLORIDE 0.9% 1000ML 1,000 ML IV SCH ×2 (02:24→11:35)
[2018-11-12] MEDS: HYDROmorphone INJ 1 MG/ML SYRINGE IV PRN ×3 (02:59→13:00)
--- NOTE | 2018-11-12 08:43 | Urology Progress Note ---
Date of Service November 12, 2018 Assessment & Plan (1) Renal colic: (2) Flank pain: 33yo F with ongoing R abd/flank pain. Not much improved from yesterday with IV/PO medications, unfortunately allergic to NSAIDs. Still with nausea/emesis. No labs available to review today. Awaiting UC&S results. IVP today to r/o small ureteral stone, collecting defect vs ureteral stricture. NPO for imaging study. Will continue to monitor closely and will direct careplan based upon IVP results. Discussed with Dr. Borges. Subjective Review of Systems All systems reviewed & are unremarkable except as noted in HPI & below Drowsy upon evaluation today. Still reporting right flank pain, right middle abdominal pain. Modestly controlled with IV and PO medications. Emesis yesterday, states she can't keep anything down. Denies LUTS, denies hematuria. States there was 'pieces" in her clean catch for culture yesterday. Did not feel they were stones, just "tissue". Unable to visualize. Physical Exam Vital Signs (Past 24 Hours): Last Vital Signs Temp 36.7 C 11/12/18 07:50 Pulse 79 11/12/18 07:50 Resp 19 11/12/18 07:50 BP 120/80 11/12/18 07:50 Pulse Ox 97 11/12/18 07:50 Physical Exam: Drowsy but oriented RRR R abdomen and flank tender upon deep palpation No bloating, no rebound tenderness Results & Data Laboratory Results Laboratory Results - last 48 hr 11/10/18 11/10/18 11/10/18 17:19 17:47 17:47 WBC 7.83 RBC 4.11 L Hgb 12.1 Hct 36.3 L MCV 88.3 MCH 29.4 MCHC 33.3 RDW Std Deviation 40.5 RDW Coeff of Sp 12.6 Plt Count 239 MPV 9.4 Immature Gran % (Auto) 0.1 Neut % (Auto) 69.2 Lymph % (Auto) 21.6 [place] % (Auto) 6.3 Eos % (Auto) 2.4 Baso % (Auto) 0.4 Immature Gran # (Auto) 0.01 Neut # (Auto) 5.42 Lymph # (Auto) 1.69 [place] # (Auto) 0.49 Eos # (Auto) 0.19 Baso # (Auto) 0.03 Sodium 143 Potassium 3.9 Chloride 110 H Carbon Dioxide 28 Anion Gap 5.0 BUN 4 L Creatinine 0.62 Est Cr Clr Drug Dosing 108.8 Est GFR ( Amer) 139.3 Est GFR (Non-Af Amer) 120.2 BUN/Creatinine Ratio 6.3 L Glucose 63 L Calcium 9.5 Urine Color Yellow Urine Appearance Clear Urine pH 5.5 Ur Specific [place] 1.010 Urine Protein Negative Urine Glucose (UA) Negative Urine Ketones Negative Urine Blood Negative Urine Nitrite Negative Urine Bilirubin Negative Urine Urobilinogen Negative Ur Leukocyte Esterase Negative Urine Test POC Ur Test 11/11/18 11/11/18 11/11/18 07:59 07:59 10:31 WBC 4.88 RBC 3.52 L Hgb 10.3 L Hct 30.8 L MCV 87.5 MCH 29.3 MCHC 33.4 RDW Std Deviation 40.9 RDW Coeff of Sp 12.8 Plt Count 191 MPV 9.4 Immature Gran % (Auto) 0.2 Neut % (Auto) 56.8 Lymph % (Auto) 29.7 [place] % (Auto) 8.0 Eos % (Auto) 5.1 Baso % (Auto) 0.2 Immature Gran # (Auto) 0.01 Neut # (Auto) 2.77 Lymph # (Auto) 1.45 [place] # (Auto) 0.39 Eos # (Auto) 0.25 Baso # (Auto) 0.01 Sodium 143 Potassium 3.5 Chloride 113 H Carbon Dioxide 26 Anion Gap 4.0 BUN 3 L Creatinine 0.52 L Est Cr Clr Drug Dosing 129.7 Est GFR ( Amer) 147.6 Est GFR (Non-Af Amer) 127.3 BUN/Creatinine Ratio 6.5 L Glucose 89 Calcium 8.0 L D Urine Color Urine Appearance Urine pH Ur Specific [place] Urine Protein Urine Glucose (UA) Urine Ketones Urine Blood Urine Nitrite Urine Bilirubin Urine Urobilinogen Ur Leukocyte Esterase Urine Test Negative POC Ur Test 11/11/18 22:09 WBC RBC Hgb Hct MCV MCH MCHC RDW Std Deviation RDW Coeff of Sp Plt Count MPV Immature Gran % (Auto) Neut % (Auto) Lymph % (Auto) [place] % (Auto) Eos % (Auto) Baso % (Auto) Immature Gran # (Auto) Neut # (Auto) Lymph # (Auto) [place] # (Auto) Eos # (Auto) Baso # (Auto) Sodium Potassium Chloride Carbon Dioxide Anion Gap BUN Creatinine Est Cr Clr Drug Dosing Est GFR ( Amer) Est GFR (Non-Af Amer) BUN/Creatinine Ratio Glucose Calcium Urine Color Urine Appearance Urine pH Ur Specific [place] Urine Protein Urine Glucose (UA) Urine Ketones Urine Blood Urine Nitrite Urine Bilirubin Urine Urobilinogen Ur Leukocyte Esterase Urine Test POC Ur Test NEG
[2018-11-12] MEDS ORDERED: OPTIRAY 300 IV PRN (09:06)
[2018-11-12] MEDS: ONDANSETRON INJ 2 MG/ML 2 ML VIAL IV PRN (10:15)
--- NOTE | 2018-11-12 10:24 | XRay Report ---
XR IVP wo/w tomograms CLINICAL HISTORY: R flank pain, hx stones COMPARISON STUDY: CT scan dated 11/10/2018 FINDINGS: The identity access management architect film reveals surgical clips in the right upper quadrant consistent with a prior c holecystectomy. There is a right mid abdominal suture line consistent with the patient's history of a prior hemicolectomy. There are faint renal calcifications suspicious for calculi. The patient was injected with 100 cc of Optiray 300. The 1 minute film reveals prompt bilateral nephr ograms. There is prompt bilateral excretion. Single nondilated ureters drain each kidney. No collecti ng system or ureteral filling defects are visualized. There is no evidence for calyceal displacement. There is a small post void residual. IMPRESSION: 1. Suspected bilateral nephrolithiasis 2. No evidence of obstruction 3. No collecting system or ureteral lesions identified 4. Small post void residual Electronically signed by: Gregory Noyola M.D. 11/12/2018 10:23 AM
[2018-11-12] MEDS: ACETAMINOPHEN 1,000 MG/100 ML VIAL IV PRN (16:23)
--- NOTE | 2018-11-12 17:45 | Consultation Report ---
DATE OF CONSULTATION: 11/12/2018 REASON FOR EVALUATION: Right flank pain and history of Crohn's disease. HISTORY OF PRESENT ILLNESS: The patient is a 33-year-old diagnosed with Crohn's disease at the age of 20. She has ileocolonic disease and in 2014 required a surgical resection of the ileocecal area and then 2 more operations ____ few months resulting in a right colectomy. She also had an incidental cholecystectomy at another time. She has been on Remicade since then, getting infusions every 8 weeks in [place]. She is followed there by Dr. Marcano. She also has had a history of kidney stones and is followed by the [facility] in [place] and because of her right flank pain over the last 2 weeks, she presented to the Emergency Room where she was subsequently admitted. She had a CAT scan and tomograms which showed some calcifications in the kidneys, but no active kidney disease or hydronephrosis. Her urinalysis was negative for blood despite the fact that she said that she saw blood in her urine. She has no inflammatory markers such as a high white count or elevated platelet count and her hemoglobin on admission was normal. She has been getting a lot of pain medication during her hospital stay, but continues to complain of right flank pain. PAST MEDICAL HISTORY: Remarkable for kidney stones, ileocolonic Crohn's disease. She has had a right colectomy. She has had a cholecystectomy. She has psoriasis. HOME MEDICATIONS: Remicade, Zofran and oxycodone. ALLERGIES: AMOXICILLIN, DICYCLOMINE, DIPHENHYDRAMINE, METOCLOPRAMIDE, MORPHINE AND CHLORHEXIDINE. SOCIAL HISTORY: The patient lives with her spouse. Does not smoke, does not drink alcohol. FAMILY HISTORY: Noncontributory. REVIEW OF SYSTEMS: Remarkable for right flank pain. PHYSICAL EXAMINATION: GENERAL: The patient appears in no acute distress. VITAL SIGNS: Normal. She is afebrile. ABDOMEN: Shows a midline incision with an incisional hernia and multiple areas which are nontender and reducible. She does have some tenderness in the right mid abdomen. No mass or rebound. She has laparoscopic cholecystectomy scars as well. IMPRESSION AND PLAN: The patient presents with right flank pain with a normal CAT scan, normal labs and no evidence of active Crohn's disease or kidney disease. Review of the [place] Opioid Data [employer] shows that the patient has been using large numbers of opioid type medications from multiple sources raising the possibility that she may be drug seeking here. I discussed the case with Dr. Spivey who has removed her Dilaudid now and hopefully the patient will improve enough that she can be discharged and follow up as an outpatient in the near future. No further GI input is needed at this point.
[2018-11-12 18:29] LABS: Amphetamines+Metham, Urine Neg (Neg); Barbiturates, Urine Neg (Neg); Benzodiazepine, Urine Neg (Neg); Cocaine, Urine Neg (Neg); MDMA (Ecstacy), Urine Neg (Neg); Methadone, Urine Neg (Neg); Opiate, Urine Pos (Neg); Phencyclidine, Urine Neg (Neg)
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
[2018-11-16 12:55] LABS: Hydrocodone Urine NEGATIVE NG/ML (CUTOFF=50); Hydromor Urine 372 NG/ML (CUTOFF=50); Morphine Urine NEGATIVE NG/ML (CUTOFF=50); Norhydrocodone Conf Ur NEGATIVE NG/ML (CUTOFF=50); Noroxycodone Urine 422 NG/ML (CUTOFF=50); Oxycodone Urine 238 NG/ML (CUTOFF=50)
== END 2018-11-12 20:05 | disposition home or self-care (01) ==
LOC: 3W 17:01 → ED 17:01 → SUATTDRO 11-11 00:17 → 3W 11-11 00:49
DX: N23 Unspecified renal colic; Z79.899 Other long term (current) drug therapy; Z88.1 Allergy status to other antibiotic agents; Z87.442 Personal history of urinary calculi; Z88.8 Allergy status to other drugs, medicaments and biological substances; N20.0 Calculus of kidney; Z88.5 Allergy status to narcotic agent; L40.9 Psoriasis, unspecified; K50.90 Crohn's disease, unspecified, without complications